=== PATIENT | female | born 1935 | race American Indian/Alaskan Native ===

== ENCOUNTER 2017-05-31 14:21 | Emergency (ER) | payer MEDICARE ==
--- NOTE | 2017-05-31 14:41 | C.PDOC ---
History Of Present Illness Patient is an 81 y/o female, with a Hx of dementia and mild confusion, who presents to the ED as referred by EMS and [facility] s/p lost at [facility]. Patient lives alone but reports to regularly ride busses and shop alone. Patient has no physical complaints at this time. Time Seen by Provider: 05/31/17 14:30 Chief Complaint (Nursing): Altered Mental Status History Per: Patient, EMS, Other ([employer]) Onset/Duration Of Symptoms: Mins ([employer]) Onset Of Symptoms: Cannot Confirm Onset Additional History Per: Patient, EMS Past Medical History Reviewed: Historical Data, Nursing Documentation, Vital Signs Vital Signs: Last Vital Signs Temp 98 F 05/31/17 14:28 Pulse 63 05/31/17 14:28 Resp 18 05/31/17 14:28 BP 206/79 H 05/31/17 14:28 Pulse Ox 99 05/31/17 15:36 - Medical History PMH: Dementia Surgical History: No Surg Hx Family History: States: No Known Family Hx - Social History Hx Alcohol Use: No Hx Substance Use: No - Immunization History Hx Tetanus Toxoid Vaccination: No Hx Influenza Vaccination: No Hx Pneumococcal Vaccination: No Review Of Systems Neurological: Positive for: Altered Mental Status Physical Exam - Physical Exam Appears: Well, Non-toxic, No Acute Distress, Other (well dressed, clean, pleasant; no injuries) Skin: Normal Color, Warm, Dry Head: Atraumatic, Normacephalic Oral Mucosa: Moist ED Course And Treatment O2 Sat by Pulse Oximetry: 99 Medical Decision Making Medical Decision Making: mild dementia, got lost @ [facility] ([place] commuting [place], easy to get lost there) and no acute medical issues, safe for d/c home with safe transportation. Disposition Doctor Will See Patient In The: Office Counseled Patient/Family Regarding: Studies Performed, Diagnosis - Disposition Referrals: [facility] [Outside] [facility] [Outside] [facility] [Outside] Disposition: HOME/ ROUTINE Disposition Time: 14:41 Condition: GOOD Additional Instructions: follow-up w your PMD as needed Instructions: Dementia (ED) Forms: [facility] (B[place]ian) - Clinical Impression Clinical Impression: Dementia, Confusion - Scribe Statement The provider has reviewed the documentation as recorded by the Scribe Valarie Ramirez All medical record entries made by the Scribe were at my direction and personally dictated by me. I have reviewed the chart and agree that the record accurately reflects my personal performance of the history, physical exam, medical decision making, and the department course for this patient. I have also personally directed, reviewed, and agree with the discharge instructions and disposition.
[2017-05-31 14:46] VITALS: BP 206/79; PULSE 63; RESP 18; TEMP 98; O2SAT 99
== END 2017-05-31 17:39 | disposition home or self-care (01) ==
LOC: C.ER 14:21
DX: F03.90 Unspecified dementia, unspecified severity, without behavioral disturbance, psychotic disturbance, mood disturbance, and anxiety (principal); R41.0 Disorientation, unspecified